=== PATIENT | male | born 1985 | race Caucasian/White ===

== ENCOUNTER 2017-06-21 17:30 | Emergency (ER) | payer MEDICAID ==
[~2017-06-21] VITALS: Ht 188 cm; Wt 92.0 kg
[~2017-06-21 17:30] MED LIST: ONDA4TAB6 PO
[2017-06-21 18:38] VITALS: BP 130/91
== END 2017-06-21 18:40 | disposition home or self-care (01) ==
LOC: ER 17:31
DX: S60.222A Contusion of left hand, initial encounter (principal); F12.10 Cannabis abuse, uncomplicated; Z79.899 Other long term (current) drug therapy; Y08.89XA Assault by other specified means, initial encounter; Y93.89 Activity, other specified; Y92.89 Other specified places as the place of occurrence of the external cause; Y99.8 Other external cause status
CPT/HCPCS: 73130; 99284

== ENCOUNTER 2023-04-01 12:34 | Emergency (ER) | payer MEDICAID ==
[~2023-04-01] VITALS: Ht 188 cm; Wt 104.2 kg
[~2023-04-01 12:34] MED LIST changes: +DIPH25CA83 PO; +HYDR28CR14 TOP
[2023-04-01] MEDS ORDERED: dexamethasone sod phosphate 10mg/ml inj IM STA (12:59)
[2023-04-01] MEDS ORDERED: ketorolac trometh inj. 60 MG/2 ML VIAL IM ONE (13:00)
[2023-04-01] MEDS ORDERED: PROM118S5 PO (14:15)
[2023-04-01] MEDS ORDERED: ALB0.5UD IH (14:15)
[2023-04-01 14:16] VITALS: BP 122/80; PULSE 80; RESP 16; TEMP 98.2; O2SAT 98
== END 2023-04-01 14:18 | disposition home or self-care (01) ==
LOC: ER 12:34
DX: J06.9 Acute upper respiratory infection, unspecified (principal); Z20.822 Contact with and (suspected) exposure to COVID-19; F12.10 Cannabis abuse, uncomplicated; Z79.899 Other long term (current) drug therapy
CPT/HCPCS: 36415; 71045; 87502; 87503; 87811; 96372; 99284; J1100; J1885

== ENCOUNTER 2023-04-13 07:50 | Emergency (ER) | payer MEDICAID ==
[~2023-04-13] VITALS: Ht 188 cm; Wt 100.0 kg
[~2023-04-13 07:50] MED LIST changes: +ALB0.5UD IH
[2023-04-13 07:53] VITALS: BP 146/92; PULSE 97; RESP 16; O2SAT 100
[2023-04-13] MEDS ORDERED: HYDR-3965 PO (09:42)
[2023-04-13 09:55] VITALS: TEMP 98.6
== END 2023-04-13 09:57 | disposition home or self-care (01) ==
LOC: ER 07:50
DX: S60.221A Contusion of right hand, initial encounter (principal); M25.532 Pain in left wrist; M25.531 Pain in right wrist; Z87.81 Personal history of (healed) traumatic fracture; X58.XXXA Exposure to other specified factors, initial encounter; Y93.89 Activity, other specified; Y92.89 Other specified places as the place of occurrence of the external cause; Y99.8 Other external cause status
CPT/HCPCS: 29125; 29130; 73110; 73130; 99284; A6446; A6449

== ENCOUNTER 2023-04-15 15:56 | Emergency (ER) | payer MEDICAID ==
[~2023-04-15] VITALS: Ht 188 cm; Wt 107.7 kg
[~2023-04-15 15:56] MED LIST changes: +HYDR-3965 PO
[2023-04-15 16:00] VITALS: BP 140/95; PULSE 92; RESP 16; TEMP 98; O2SAT 98
== END 2023-04-15 16:29 | disposition home or self-care (01) ==
LOC: ER 15:59
DX: M25.532 Pain in left wrist (principal); F12.90 Cannabis use, unspecified, uncomplicated; Z79.899 Other long term (current) drug therapy
CPT/HCPCS: 99282

== ENCOUNTER 2023-04-22 16:10 | Emergency (ER) | payer MEDICAID ==
[~2023-04-22] VITALS: Ht 188 cm; Wt 107.7 kg
[~2023-04-22 16:10] MED LIST changes: -HYDR-3965 PO
[2023-04-22 16:57] VITALS: BP 130/87; PULSE 102; RESP 18; TEMP 98.4; O2SAT 97
== END 2023-04-22 17:26 | disposition home or self-care (01) ==
LOC: ER 16:11
DX: S69.92XA Unspecified injury of left wrist, hand and finger(s), initial encounter (principal); F12.90 Cannabis use, unspecified, uncomplicated; Z72.89 Other problems related to lifestyle; Z79.899 Other long term (current) drug therapy; X58.XXXA Exposure to other specified factors, initial encounter; Y93.89 Activity, other specified; Y92.89 Other specified places as the place of occurrence of the external cause; Y99.8 Other external cause status
CPT/HCPCS: 99284

== ENCOUNTER 2024-07-30 07:56 | Emergency (ER) | payer SELFPAY ==
[~2024-07-30] VITALS: Ht 188 cm; Wt 97.5 kg
[~2024-07-30 07:56] MED LIST changes: -ALB0.5UD IH
[2024-07-30 08:00] VITALS: BP 142/100; PULSE 96; RESP 18; O2SAT 97
[2024-07-30] MEDS ORDERED: ONDA-243 PO (09:17)
--- NOTE | 2024-07-30 09:17 | Physician Documentation ---
History of Present Illness ~ Chief Complaint: Diarrhea Stated Complaint: N/V Time Seen by MD: 08:51 Primary Medical Doctor: NONE HPI 39year-old male presents to the ED with a complaint of three days of nausea vomiting and diarrhea. He states he went out drinking with his brother and has been sick ever since. He is he is primarily here for a work note. Denies any abdominal pain denies any fever states he was requesting something for nausea Day of Onset: July 30, 2024 Medication Reconciliation Allergies: Coded Allergies: No Known Allergies (Unverified , 04/22/23) Scheduled Diphenhydramine Hcl (Benadryl), 1 CAP PO HS Hydrocortisone (hydrocortisone 1% cream), 1 APPLIC TOP Q12H Scheduled PRN ONDANSETRON ODT 4mg tablet (Ondansetron Odt), 1 TAB PO Q6H PRN PRN for nausea/vomiting Ondansetron Hcl (Zofran), 1 TABLET PO Q6H PRN for nausea/vomiting Past Medical History Past Medical History: No Pertinent History Past Surgical History: no surgical history Alcohol Use: Occasionally Drug Use: marijuana Lives In: Home Occupation: employed Review of Systems All Other Systems at this time: Reviewed and Negative ROS As stated above in the HPI, otherwise all systems are reviewed and negative. Physical Exam Vital Signs: Temperature: 97.3, Source: Oral, Heart Rate: 96, Respiratory Rate: 18, BP: 142/100, Pulse Oximetry: 97, Weight: 97.500 Oxygen Flow Rate: 0 Physical Exam General: Alert, no apparent distress. Respiratory: Lungs clear, no respiratory distress. Cardiovascular: Regular rate and rhythm, no murmurs. Gastrointestinal: Soft, nontender, nondistended. Bowels sounds present. Neurologic: Oriented x4. Psychiatric: Normal mood and affect. Skin: Normal color, warm and dry. No edema, no ecchymosis. Progress Results/Orders Results/Orders Completed Orders - NAYELY BABIN NP Ondansetron Disint. Tablet (Zofran Odt T (07/30/24 09:25) Medications Received in ER Medications (Trade) Dose Ordered Sig/Meagan Route PRN Reason Start Time Stop Time Status Last Admin Dose Admin (Zofran ODT tablet) 4 mg ONCE ONCE PO 07/30/24 09:25 07/30/24 09:28 DC 07/30/24 09:33 4 MG Vital Signs 07/30/24 07/30/24 08:00 09:35 Temp 97.3 97.3 Pulse 96 Resp 18 B/P (MAP) 142/100 Pulse Ox 97 O2 Flow Rate 0 Medical Decision Making Findings Does not present any acute distress in his nontoxic appearing. I am going to treat him with an antiemetic and provide him with a work note as requested for two days. Suspecting either alcoholic gastritis or viral gastroenteritis Diff Dx GI Bleed:Consideration: Include: AE fistula, Angiodysplasia, Bleeding diathesis, Blood loss anemia, Carcinoma, Diverticulosis, Diverticulitis, Esophageal varicies, Esophagitis, Gastritis, Gastroenteritis, Inflammatory BD, Corin-Baird syndrome, Meckel's diverticulum, PUD, Other Diff Dx N/V/D:Considerations: Include: Appendicitis, Bowel obstruction, Dehydration, DKA, Diarrhea - bacterial, Diarrhea - parasitic, Diarrhea - viral, Diverticulitis, Diverticulosis, Drug toxicity, Electrolyte imbalance, Food poisoning, Gastroenteritis, GE reflux, GI bleed, Hepatitis, Hernia, Hypovolemia, Hypotension, Inflammatory BD, Impaction, Malnutrition, Pancreatitis, PUD, Renal failure, Urinary obstruction, UTI, Urolithiasis, Other Departure Disposition: 01 HOME / SELF CARE / HOMELESS Impression: Primary Impression: Gastritis Additional Impression: Viral gastroenteritis Condition: Improved Discharge Instructions: Diarrhea, Adult Departure Forms: Excuse form Work or School Excused From: Work Excuse beginning now through the following date: August 01, 2024 May Return but still avoid physical Activity from now until: August 01, 2024 May Return to full physical activity as of: August 01, 2024 Referrals: NO PRIMARY CARE PROVIDER (PCP) Prescriptions ONDANSETRON ODT 4mg tablet (ONDANSETRON ODT) 4 Mg Tab.rapdis 1 TAB PO Q6H PRN PRN for nausea/vomiting for 4 Days, #16 TAB 0 Refills Prov: NAYELY BABIN NP 07/30/24 Signature Scribe Signature: f Attestation: The note accurately reflects work and decisions made by me.Nayely Babin - HANNAH 07/30/24 09:17 NAYELY BABIN NP July 30, 2024 09:17
[2024-07-30] MEDS: ondansetron 4mg rapidly disintigrating tab PO ONE (09:33)
[2024-07-30 09:35] VITALS: TEMP 97.3
== END 2024-07-30 09:36 | disposition home or self-care (01) ==
LOC: ER 07:57
DX: K29.70 Gastritis, unspecified, without bleeding (principal); A08.4 Viral intestinal infection, unspecified; F12.90 Cannabis use, unspecified, uncomplicated
CPT/HCPCS: 99283

== ENCOUNTER 2024-09-25 20:51 | Emergency (ER) | payer OTHER ==
[~2024-09-25] VITALS: Ht 188 cm; Wt 100.3 kg
[~2024-09-25 20:51] MED LIST changes: +ONDA-243 PO
--- NOTE | 2024-09-25 21:03 | Physician Documentation ---
History of Present Illness ~ Chief Complaint: Abscess Stated Complaint: RASH Time Seen by MD: 20:52 Primary Medical Doctor: NONE HPI Patient presents to the emergency room with chief complaint of abscess to his right axilla. Has been developing over the past week. No prior instances. No fevers. History as above. Tetanus Within 5 Years: Yes Medication Reconciliation Allergies: Coded Allergies: No Known Allergies (Unverified , 04/22/23) Scheduled Diphenhydramine Hcl (Benadryl), 1 CAP PO HS Hydrocortisone (hydrocortisone 1% cream), 1 APPLIC TOP Q12H Scheduled PRN ONDANSETRON ODT 4mg tablet (Ondansetron Odt), 1 TAB PO Q6H PRN PRN for nausea/vomiting Ondansetron Hcl (Zofran), 1 TABLET PO Q6H PRN for nausea/vomiting Past Medical History Past Medical History: No Pertinent History Past Surgical History: no surgical history Alcohol Use: Occasionally Drug Use: marijuana Lives In: Home Occupation: employed Review of Systems ROS All review of systems negative except as per HPI Physical Exam Vital Signs: Temperature: 98.4, Source: Oral, Heart Rate: 113, Respiratory Rate: 16, BP: 118/64, Pulse Oximetry: 97, Weight: 100.300 Oxygen Flow Rate: 0 Physical Exam General: Patient is awake, alert, oriented x4 in no acute distress Head: Normocephalic and atraumatic. Eyes: Conjunctival normal. EOMI. PERRL. ENT: Mucous membranes moist. Neck: Supple, trachea is midline. Chest: Clear to auscultation bilaterally without rales, rhonchi, or wheezes. There is no accessory muscle use or retractions. Cardiac: Tachycardic and regular without murmurs, gallops, or rubs. Skin: Abscess and patient's right axilla measuring 3 cm x 3 cm positive fluctuance. No cellulitis. Procedures Procedures Incision and drainage: Status post informed verbal consent patient was sterilely cleaned and draped. 1% lidocaine with epinephrine to a total of 2 cc was utilized to anesthetize patient. 11. Blade utilized perform incision and drainage with 2 cc of purulent drainage expressed from patient's abscess. He loculation performed. Patient tolerated procedure well without complication. Total time of procedure 7 minutes Progress Results/Orders Results/Orders Vital Signs 09/25/24 20:55 Temp 98.4 Pulse 113 Resp 16 B/P (MAP) 118/64 Pulse Ox 97 O2 Flow Rate 0 Medical Decision Making Findings Patient presented to the emergency room with abscess to his right axilla out differentials include but are not limited to sebaceous cyst, abscess, cellulitis, foreign body. Given history and patient's vitals I do not feel emergent labs or imaging is necessary. Patient is status post incision and dr maynard. Antibiotics initiated. Tetanus reported to be up-to-date. ER precautions discussed. Departure Disposition: HOME / SELF CARE / HOMELESS Impression: Primary Impression: Abscess Condition: Stable Discharge Instructions: Abscess, Care After Referrals: NO PRIMARY CARE PROVIDER (PCP) Prescriptions Sulfamethoxazole/Trimethoprim (Bactrim Ds Tablet) 800 Mg-160 Mg Tablet 1 TAB PO Q12H for 10 Days, #20 TAB Prov: SYD VASQUEZ MD 09/25/24 Education Educated: Patient Educated regarding: diagnosis, treatment, need for follow up Signature Scribe Signature: No scribe Attestation: The note accurately reflects work and decisions made by me.Syd Vasquez MD 09/25/24 21:20 SYD VASQUEZ MD Sep 25, 2024 21:03
[2024-09-25] MEDS ORDERED: SULF1TAB49 PO (21:20)
[2024-09-25] MEDS: bacitracin 15gm ointment TP ONE (21:26)
[2024-09-25] MEDS: ondansetron 4mg rapidly disintigrating tab PO ONE (21:26)
[2024-09-25] MEDS: sulfamethoxazole/trimethoprim DS (800/160mg) tablet PO ONE (21:26)
[2024-09-25 21:32] VITALS: BP 118/62; PULSE 99; RESP 18; TEMP 98.9; O2SAT 99
== END 2024-09-25 21:33 | disposition home or self-care (01) ==
LOC: ER 20:52
DX: L02.411 Cutaneous abscess of right axilla (principal)
CPT/HCPCS: 10060; 99283

== ENCOUNTER 2025-01-23 23:03 | Inpatient (IN) | payer OTHER ==
[~2025-01-23] VITALS: Ht 188 cm; Wt 96.5 kg
[2025-01-23 23:40] LABS: CREATININE 0.90 MG/DL (0.60-1.10); TOTAL CARBON DIOXIDE 27.9 MMOL/L (24-32); eCRCL 127 ML/MIN; eGFR > 90 ML/MIN
[2025-01-24] VITALS (25 sets, daily range): BP systolic 121–167; BP diastolic 67–98; PULSE 82–98; RESP 16–31; TEMP 97.5–98.5; O2SAT 93–99
[2025-01-24 00:38] LABS: MEAN PLATELET VOLUME 9.1 FL (7.4-10.4); RED CELL DISTRIBUTION WIDTH 13.2 % (11.5-14.5)
--- NOTE | 2025-01-24 00:45 | Physician Documentation ---
History of Present Illness ~ Chief Complaint: Abdominal Pain Stated Complaint: ABDOMINAL PAIN Time Seen by MD: 00:42 Primary Medical Doctor: NONE HPI Patient presents to the emergency room with chief complaint of abdominal pain over the last few days getting worse. He also endorses abnormal bowel habits that has well as dysuria. Medication Reconciliation Allergies: Coded Allergies: No Known Allergies (Unverified , 04/22/23) Scheduled Diphenhydramine Hcl (Benadryl), 1 CAP PO HS Hydrocortisone (hydrocortisone 1% cream), 1 APPLIC TOP Q12H Scheduled PRN ONDANSETRON ODT 4mg tablet (Ondansetron Odt), 1 TAB PO Q6H PRN PRN for naus ea/vomiting Ondansetron Hcl (Zofran), 1 TABLET PO Q6H PRN for nausea/vomiting Past Medical History Past Medical History: No Pertinent History Past Surgical History: no surgical history Alcohol Use: Occasionally Drug Use: marijuana Lives In: Home Occupation: employed Review of Systems ROS All review of systems negative except as per HPI Physical Exam Vital Signs: Temperature: 98.2, Source: Temporal, Heart Rate: 89, Respiratory Rate: 24, BP: 109/70, Pulse Oximetry: 98, Weight: 124.000 Oxygen Flow Rate: 0 Physical Exam General: Patient is awake, alert, oriented x4 in no acute distress. Pressured speech Head: Normocephalic and atraumatic. Eyes: Conjunctival normal. EOMI. PERRL. ENT: Mucous membranes moist. Neck: Supple, trachea is midline. Chest: Clear to auscultation bilaterally without rales, rhonchi, or wheezes. There is no accessory muscle use or retractions. Cardiac: RRR without murmurs, gallops, or rubs. Abd: Soft, nondistended, diffuse abdominal tenderness. Positive bowel sounds Progress Results/Orders Results/Orders Orders - SYD VASQUEZ MD Ct Abdomen Pelvis (01/24/25 00:47) Cult Urine + [facility] (01/24/25 01:51) Piperacillin/Tazo 3.375gm/50ml (Zosyn 3. (01/24/25 03:05) Page Hospitalist (01/24/25 03:07) Fill Out Med Reconciliation (01/24/25 03:07) Completed Orders - SYD VASQUEZ MD Cbc/Diff (01/23/25 23:04) BMP (01/23/25 23:04) Lipase (01/23/25 23:04) CMP (01/23/25 23:04) Ct Abdomen Pelvis (01/24/25 00:47) Normal Saline 1000ml (0.9% Sodium Chlori (01/24/25 00:50) Drug Screen, Urine (01/24/25 00:47) Ketorolac Trometh 15mg/Ml Vial (Toradol (01/24/25 00:50) Acetaminophen 1,000mg/100ml Iv (Ofirmev (01/24/25 00:50) Ondansetron Inj. (Zofran 4mg/2ml Vial) (01/24/25 00:55) Potassium Cl Sr Tablet (K-Dur Tablet) (01/24/25 00:52) Iohexol 300mg/Ml 100ml Inj. (Omnipaque-3 (01/24/25 01:49) Ua W/Microscopic, Cult If Ind (01/24/25 01:16) Morphine 4mg/Ml Inj. (Morphine Inj.) (01/24/25 03:10) Medications Received in ER Medications (Trade) Dose Ordered Sig/Meagan Route PRN Reason Start Time Stop Time Status Last Admin Dose Admin Sodium Chloride 1,000 ml @ 1,000 mls/hr ONCE ONCE IV 01/24/25 00:50 01/24/25 01:49 DC 01/24/25 01:30 1,000 MLS/HR (Toradol injection) 15 mg ONCE ONCE IV 01/24/25 00:50 01/24/25 00:51 DC 01/24/25 01:31 15 MG Acetaminophen 100 ml @ 400 mls/hr ONCE ONCE IV 01/24/25 00:50 01/24/25 01:04 DC 01/24/25 01:30 400 MLS/HR (Zofran 4mg/2ml vial) 4 mg ONCE ONCE IV 01/24/25 00:55 01/24/25 00:56 DC 01/24/25 01:31 4 MG (K-DUR tablet) 40 meq ONCE STAT PO 01/24/25 00:52 01/24/25 01:00 DC 01/24/25 01:31 40 MEQ Vital Signs 01/23/25 01/24/25 01/24/25 01/24/25 23:06 00:40 00:46 01:31 Temp 98.2 Pulse 89 94 Resp 24 22 22 20 B/P (MAP) 109/70 133/75 (94) Pulse Ox 98 97 O2 Flow Rate 0 Laboratory Tests Test 01/23/25 23:15 01/24/25 01:16 White Blood Count 13.0 H Red Blood Count 4.63 L Hemoglobin 15.3 Hematocrit 43.4 Mean Corpuscular Volume 93.7 Mean Corpuscular Hemoglobin 33.1 H Mean Corpuscular Hemoglobin Concent 35.4 Red Cell Distribution Width 13.2 Platelet Count 205 Mean Platelet Volume 9.1 Neutrophils (%) (Auto) 76.8 H Lymphocytes (%) (Auto) 14.2 L Monocytes (%) (Auto) 7.9 Eosinophils (%) (Auto) 0.6 Basophils (%) (Auto) 0.5 Neutrophils # (Auto) 10.0 H Lymphocytes # (Auto) 1.9 Monocytes # (Auto) 1.0 H Eosinophils # (Auto) 0.1 Basophils # (Auto) 0.1 CBC Comment Sodium Level 136 Potassium Level 2.9 *L Chloride Level 97 L Carbon Dioxide Level 27.9 Anion Gap 11 Blood Urea Nitrogen 11 Creatinine 0.90 Estimated GFR/1.73 m2 > 90 BUN/Creatinine Ratio 12.2 Glucose Level 121 H Calcium Level 9.1 Total Bilirubin 1.0 Aspartate Amino Transf (AST/SGOT) 20 Alanine Aminotransferase (ALT/SGPT) 20 Alkaline Phosphatase 91 Total Protein 8.5 H Albumin 3.3 L Globulin 5.2 H Albumin/Globulin Ratio 0.6 L Lipase 17 Chemistry Comments Urine Specimen Description Cln catch midstream Urine Color Yellow Urine Clarity Slightly cloudy Urine pH 6.5 Urine Specific [place] 1.020 Urine Protein 100 H Urine Glucose (UA) Negative Urine Ketones Trace H Urine Occult Blood Negative Urine Nitrite Negative Urine Bilirubin Small Urine Urobilinogen 1.0 Urine Leukocyte Esterase Negative Urine RBC 3-10 Urine WBC 5-10 H Urine Squamous Epithelial Cells Few Urine Transitional Epithelial Cells Few Urine Amorphous Urates 1+ Urine Bacteria None seen Urine Mucus Few Urine Culture Indicated Indicated Volume Urine Centrifuged 10 ml Urine Comment Urine Opiates Screen Negative Urine Methadone Screen Negative Urine Fentanyl Screen Negative Urine Barbiturates Screen Negative Urine Phencyclidine Screen Negative Urine Amphetamines Screen Negative Urine Benzodiazepines Screen Negative Urine Cocaine Screen Negative Urine Cannabinoids Screen Positive Drug Screen Comment Microbiology Date/Time Source Procedure Growth Status 01/24/25 01:51 Urine Clean Catch Midstream Urine Culture - Preliminary Culture received. Resulted Medical Decision Making Additional information obtaine: N/A Findings Patient presented to the emergency room with chief complaint of abdominal pain. Differentials include but are not limited to appendicitis diverticulitis small- bowel obstruction pancreatitis cholecystitis gastritis therefore emergent labs and imaging indicated. Labs show white count along with intra-abdominal air. Surgeon and easily consulted in his aware of patient. IV antibiotics initiated. Blood pressure is reassuring. Diff Dx GI Bleed:Consideration: Include: AE fistula, Angiodysplasia, Bleeding diathesis, Blood loss anemia, Carcinoma, Diverticulosis, Diverticulitis, Esophageal varicies, Esophagitis, Gastritis, Gastroenteritis, Inflammatory BD, Corin-Baird syndrome, Meckel's diverticulum, PUD, Other Diff Dx Pain:Considerations: Include: AAA, Angina/CA, Aortic dissection, Appen dicitis, Bowel obstruction, Cholangitis, Cholecystitis, Cholelithasis, Constipation, Diverticular disease, Esophageal rupture, Esophagitis, Gastritis, Gastroenteritis, GI hemorrhage, Hepatitis, Hernia, Inflammatory BD, Ischemic bowel, Mass, Pancreatitis, Porphyria, PUD, Testicular torsion, Trauma, intraabdominal, Urinary obstruction, Urinary tract infection, Urolithiasis, Other Diff Dx N/V/D:Considerations: Include: Appendicitis, Bowel obstruction, Dehydration, DKA, Diarrhea - bacterial, Diarrhea - parasitic, Diarrhea - viral, Diverticulitis, Diverticulosis, Drug toxicity, Electrolyte imbalance, Food poisoning, Gastroenteritis, GE reflux, GI bleed, Hepatitis, Hernia, Hypovolemia, Hypotension, Inflammatory BD, Impaction, Malnutrition, Pancreatitis, PUD, Renal failure, Urinary obstruction, UTI, Urolithiasis, Other Diff Dx Rectal:Considerations: Include: Fissure, Fistula, Foreign body, Impaction, Perirectal abscess, Prostatitis, Rectal prolapse, Subcutaneous abscess, Thrombosed hemorrhoid, Ulcer, UTI, Other Departure Admitted to Inpatient Unit: yes, to hospitalist Impression: Primary Impression: Perforated bowel Referrals: NO PRIMARY CARE PROVIDER (PCP) Critical Care Note Total Time (mins): 46 Critical Care Note The very real possibility of a deterioration of this patient's condition required the highest level of my preparedness for sudden, emergent intervention. I provided critical care services, which included medication orders, frequent reevaluations of the patient's condition and response to treatment, ordering and reviewing test results, and discussing the case with various consultants. Excludes time spent performing separately billable procedures. The critical care time associated with the care of the patient was 46 minutes not counting procedures Signature Scribe Signature: No scribe Attestation: The note accurately reflects work and decisions made by me.Syd Vasquez MD 01/24/25 03:23 SYD VASQUEZ MD Jan 24, 2025 00:45
[2025-01-24] MEDS: acetaminophen 1,000mg/100ml IV 100 ML IV ONE (01:30)
[2025-01-24] MEDS: normal saline 1000ml 1,000 ML IV ONE (01:30)
[2025-01-24] MEDS: ketorolac trometh 15mg/ml vial 15 MG/ML ML IV ONE (01:31)
[2025-01-24] MEDS: potassium Cl 20 mEq SR tablet PO STA (01:31)
[2025-01-24] MEDS: ondansetron/PF 4mg/2ml inj IV ONE (01:31)
[2025-01-24 01:44] LABS: LEUKOCYTE ESTERASE ,URINE NEGATIVE (Neg); OCCULT BLOOD,URINE NEGATIVE (Neg)
[2025-01-24 01:49] LABS: UA COLLECTION TYPE CLN CATCH MIDSTREAM
[2025-01-24] MEDS ORDERED: iohexol 300mg/ml 100ml inj. ONE (01:49)
[2025-01-24 01:50] LABS: NITRITES, URINE NEGATIVE (Neg)
[2025-01-24 01:51] LABS: AMORPHOUS URATES 1+; MUCUS STRANDS FEW /LPF (Neg); SQUAMOUS EPITHELIAL CELL,UR FEW /LPF (FEW); URINE AMPHETAMINE SCREEN NEGATIVE (Neg); URINE BARBITUATE SCREEN NEGATIVE (Neg); URINE BENZODIAZEPINES SCREEN NEGATIVE (Neg); URINE CANNABINOID SCREEN POSITIVE (Neg); URINE COCAINE SCREEN NEGATIVE (Neg); URINE METHADONE SCREEN NEGATIVE (Neg); URINE OPIATE SCREEN NEGATIVE (Neg); URINE PHENCYCLIDINE SCREEN NEGATIVE (Neg)
--- NOTE | 2025-01-24 03:01 | RADIOLOGY REPORT ---
Exam: CT CT ABDOMEN PELVIS W/ IV CONTRAST History: abd pain Comparison Study: None TECHNIQUE: CT imaging of the abdomen and pelvis was obtained following the administration of intravenous contrast. Coronal and sagittal reformatted images were reviewed. All CT scans at this medical facility are performed using dose modulation techniques as appropriate to a performed exam including the following: Automated exposure control was utilized; adjustment of the MA and/or KV according to patient size; and use of iterative reconstruction technique. Radiation Dose Information: CT Dose: CTDI volume is 30.7 mGy. Dose-length product is 1756 mGy*cm FINDINGS: Imaged portions of the lung bases demonstrate subsegmental atelectasis. Liver, gallbladder, spleen, pancreas and adrenal glands appear unremarkable. The kidneys appear symmetric without hydronephrosis. The stomach and proximal small bowel is normal in caliber. There is an abnormal loop of terminal ileum measuring up to 3.1 cm with wall thickening and inspissated contents. Few additional proximal loops of jejunum are noted measuring up to 3.1 cm. Within the right lower quadrant, there is significant p ericolonic and perienteric fat stranding and small amount of fluid in the right lower quadrant. There is colonic diverticulosis and loculated free air adjacent to loop of sigmoid colon as well as terminal ileum. There are a few additional foci and areas of free intraperitoneal air. The urinary bladder wall is mildly thickened but partially collapsed. No significant adenopathy. Degenerative changes at L5-S1 without suspicious osseous lesion. IMPRESSION: 1. Abnormal appearance of distal ileal loop with wall thickening, marked perienteric fat stranding, adjacent free fluid, inseparable from sigmoid colon which exhibits mild wall thickening and diverticulosis. There are findings of adjacent micro perforation as well as moderate free intraperitoneal air. Findings may be on the basis of sigmoid colonic diverticulitis with perforation versus ileal enteritis with perforation. Critical Result: Pneumoperitoneum (free air) Findings discussed with GLORIA PYLE at 01/24/2025 05:58 AM EST, and acknowledged receipt and understanding of the findings. ..
[2025-01-24] MEDS ORDERED: HYDROcodone/acetaminophen 10/325mg tab PO PRN (03:20)
[2025-01-24] MEDS ORDERED: mag hydrox/Alum hydrox/simeth 30ml oral suspension PO PRN (03:20)
[2025-01-24] MEDS ORDERED: potassium Cl 20 mEq SR tablet PO PRN (03:20)
[2025-01-24] MEDS ORDERED: HYDROcodone/acetaminophen 5mg/325mg tablet PO PRN (03:20)
[2025-01-24] MEDS ORDERED: magnesium sulf-water 2g/50mL 50 ML IV PRN (03:20)
[2025-01-24] MEDS ORDERED: HYDROmorphone inj. 0.5 MG/0.5 ML DISP.SYRIN IV PRN ×2 (03:20→10:30)
[2025-01-24] MEDS ORDERED: magnesium hydroxide 30ml (MOM) UD suspension PO PRN (03:20)
[2025-01-24] MEDS ORDERED: magnesium Cl slow-release 64mg tablet PO PRN (03:20)
[2025-01-24] MEDS ORDERED: magnesium sulf-water 4G/100mL 100 ML IV PRN (03:20)
[2025-01-24] MEDS ORDERED: HYDROmorphone/PF 0.2 MG/ML SYRINGE IV PRN ×3 (03:20→21:40)
[2025-01-24] MEDS: morphine 4 MG/ML inj SYRINge IV ONE (03:39)
--- NOTE | 2025-01-24 03:42 | HISTORY AND PHYSICAL-Residence ---
History & Physical Providers to CC Resident Creating Document: ELAYNE HARLEY, RES ~ History of Present Illness Primary Medical Doctor: none Reason for Admit\\Complaint: Perforated bowel History of Present Illness This is a 39-year-old male with no significant past medical history presents to the ER due to intractable abdominal pain. Patient endorses that he had a stomach infection, nausea on last week, he also had nonbloody watery diarrhea on Wednesday and started taking Imodium. Diarrhea and abdominal pain has initially improved, however this morning patient had an episode of acute intractable abdominal pain 10/10 severity, diffuse pain worsened the lower hypogastric region associated with multiple episodes of vomiting and dark urine. He also endorses feeling bloated and having abdominal distention. Patient states" he did not want to in the couch" and hence came to the ED. ER course: Patient was severely tender on palpation of abdomen. Lipase levels were within normal limits, white count is slightly elevated, CT abdomen pelvis showed perforated bowel secondary to diverticulitis versus enteritis. Patient received one dose of 15 mg IV Toradol, Zofran 4 mg IV, potassium tablet, Zosyn, morphine [address] dose[address] Robledo was consulted in the view of perforated viscus and patient is currently NPO for possible surgery. Allergies: Coded Allergies: No Known Allergies (Unverified , 04/22/23) Home Medications Home Medications Active Ondansetron Odt (Ondansetron HCl) 4 Mg Tab.rapdis 1 Tab PO Q6H PRN PRN 4 Days Benadryl (Diphenhydramine Hcl) 25 Mg Capsule 1 Cap PO HS 30 Days hydrocortisone 1% cream (Hydrocortisone) 1 % Cream..g. 1 Applic TOP Q12H 10 Days apply to affected area(s) Zofran (Ondansetron Hcl) 4 Mg Tablet 1 Tablet PO Q6H PRN Past Medical History Past Medical History None Past Surgical History Surgical History Comment None Past Social History Social History Comment Smokes about one pack per day for the last 20 years, drinks about 3-4 drinks on the weekends, smokes marijuana but denies any drug use. Lives at home and ambulates independently Smoking: Cigarettes Alcohol Use: Occasionally Drug Use: Marijuana Lives In: Home Occupation: employed ROS ROS Constitutional: No fever, chills, dizziness, weakness, weight gain or loss Eyes: No pain, erythema, discharge, blurring of vision ENT: No sore throat, epistaxis, tinnitus Cardiovascular: No palpitations, syncope, lower extremity edema, paroxysmal nocturnal dyspnea Respiratory: No hemoptysis Gastrointestinal: Loss of appetite. nausea, vomiting, diarrhea, , abdominal pain, bloating, no melena or fresh blood Genitourinary: Dark urine, No frequency, urgency, nocturia, hematuria or dysuria Musculoskeletal: No arthralgias or myalgias Integumentary: No change in skin, hair, nails. No swelling, bruising, abrasions Neurologic: No headache, neck pain, numbness or tingling of the extremities, weakness Psychiatric: No delusions, depression, loss of interest in normal activity or change in sleep pattern, hallucinations, suicidal ideations Endocrine: No fatigue, weakness, polydipsia, polyuria, change in appetite, heat or cold intolerance, sweating, dry skin Hematological: No bleeding, petechiae, bruising Allergies: No asthma or urticaria Exam Vitals: Vital Signs Date Time Temp Pulse Resp B/P (MAP) Pulse Ox O2 Delivery O2 Flow Rate FiO2 01/24/25 01:31 20 01/24/25 00:46 94 133/75 (94) 97 01/23/25 23:06 98.2 0 General: General: well developed, well nourished. Awake , alert, and oriented x4, resting comfortably in the bed, in no acute distress . HEENT: Atraumatic, normocephalic, EOMI, anicteric sclera B; pink conjunctiva; PERRLA, normal oropharynx, moist oral and nasal mucosa. Tympanic membrane , nose , throat clear. Neck: Trachea midline. Supple, full range of motion, no JVD, bruit , hepatojugular reflex , lymphadenopathy or masses, or other lesions Cardiac: Regular rhythm, regular rate no murmurs, rubs, or gallops. Normal S1 and S2, no S3 noticed. PMI is normal. Respiratory: Equal breath sounds bilaterally, no tachypnea; lungs clear to auscultation bilaterally, no wheezing ,rub or rales, or crackles. Chest wall is symmetric and without deformity. No signs of trauma. Chest wall is nontender. No signs of respiratory distress. Resonance is normal upon percussion bilaterally. Gastrointestinal: Abdomen symmetric, distended, rigid, severely tender, diffuse bowel sounds x4 quadrant, normoactive, no hepatosplenomegaly no masses , no bruit, no flank pain bilaterally. No pulsatile masses. Equal femoral pulses. No Thomas's sign or McBurney point tenderness. Back; no CVA tenderness bilaterally, no deformities. Neck and back are without deformity as well. No tenderness noted on palpation of the spinous processes. Spinous processes are midline. Cervical, thoracic, and lumbar paraspinal muscles are not tender and are without spasm. : normal external genitalia, without lesions, swelling, masses or tenderness. Musculoskeletal: Extremities, normal range of motion, non-tender, muscle strength 5/5 x 4. Negative Homans signs bilaterally on lower extremity. Distal pulses full symmetrical, no clubbing, cyanosis , edema. Neurological: Speech is clear, alert, and oriented x 4. No motor or sensory deficit, deep tendon reflexes normal, cerebellar intact. Cranial nerves II-XII intact. Psych: Alert and or appropriate, normal affect. Vascular: Good distal pulses, which are equal x4; capillary refill less than 2 seconds. Skin: Warm, dry, no pallor, no rash or petechiae. Diagnostic Data Last Recorded Lab Results: 01/23/25 2315 01/24/25 0648 Advance Care Planning Advanced Care plannin - 30 Minutes (I spent a total of 17 minutes on reviewing various resuscitative measures/ ACP with the patient at the time of admission. The patient has decided on a full code status) Additional Plan Intractable abdominal pain pneumoperitoneum likely secondary to Imodium use on ileal enteritis Leukocytosis CT abdomen shows Abnormal appearance of distal ileal loop with wall thickening, marked perienteric fat stranding, adjacent free fluid, inseparable from sigmoid colon which exhibits mild wall thickening and diverticulosis. There are findings of adjacent micro perforation as well as moderate free intraperitoneal air. Findings may be on the basis of sigmoid colonic diverticulitis with perforation versus ileal enteritis with perforation. Patient denies any bloody stools which is more suggestive of ileal enteritis with perforation rather than diverticulitis. Surgeon Dr. Robledo is aware about the patient's. NPO for possible surgery. Started on IV Zosyn Q 8 hours for pre-surgical prophylaxis. Started on IV fluids NS at 100 mL/hour. Pain management with morphine Dilaudid. Started on IV Protonix 40 mg, type and screen, PT INR ordered. Lactic acid and procalcitonin levels are pending. Consult GI in the a.m. Avoid Imodium. Hypokalemia Potassium 2.9, replace per protocol Asymptomatic bacteriuria UA shows 5-10 urine WBC and 1+ protein, trace ketonuria. Continue Zosyn and IV fluids. However patient denies any dysuria. Code Status: Full code DVT Prophylaxis: Heparin Analgesia/Sedation: Morphine, Dilaudid Lines/Tubes: PIV Gi Prophylaxis: IV Protonix Nutrition: NPO PT: Yes Prognosis: Guarded Disposition: Admit to PCU Elayne Magallon MD Internal Medicine Resident PGY-2 Addendum I personally reviewed the chart, labs and imaging and reviewed the patient with the team. I agree with the assessment and plan as documented by the resident. Patient was seen through remote audio-visual assessment through HIPAA compliance setup. Date of Service: Jan 24, 2025 Billing Provider: JAMMIE CHAVEZ MD,ELAYNE MAGALLON, RES Jan 24, 2025 03:42 JAMMIE CHAVEZ MD Jan 24, 2025 08:41
[2025-01-24] MEDS: piperacillin/tazo 3.375gm/50ml 50 ML IV ONE (03:43)
[2025-01-24 03:58] LABS: PRO BRAIN NATRIURETIC PEPTIDE < 30 PG/ML (0-125)
[2025-01-24 04:17] LABS: APTT 28 SECONDS (22-32); INR 1.0 INR
--- NOTE | 2025-01-24 04:19 | RADIOLOGY REPORT ---
CHEST RADIOGRAPH Indication: SOB Technique: Single frontal view of the chest was obtained Comparison: DI CHEST,SINGLE VIEW on DOS: 04/01/23 FINDINGS: Lines and Tubes: None Lungs: No focal consolidation. Pleura: No effusion. No pneumothorax. Cardiomediastinal contours: Unremarkable Bones: No acute osseous abnormality. IMPRESSION: 1. No acute cardiopulmonary disease.
[2025-01-24] MEDS: normal saline 1000ml 1,000 ML IV SCH ×2 (04:35→22:15)
[2025-01-24 04:53] LABS: LEUKOCYTE ESTERASE ,URINE NEGATIVE (Neg); NITRITES, URINE NEGATIVE (Neg); OCCULT BLOOD,URINE NEGATIVE (Neg)
[2025-01-24 04:54] LABS: UA COLLECTION TYPE URINAL
[2025-01-24 04:57] LABS: MUCUS STRANDS FEW /LPF (Neg); SQUAMOUS EPITHELIAL CELL,UR FEW /LPF (FEW)
[2025-01-24] MEDS: heparin, porcine 5000 units/ml vial SQ SCH (08:00)
[2025-01-24] MEDS: docusate sod 100mg capsule PO SCH (08:00)
[2025-01-24] MEDS: K and/or MAG REPLACEMENT MC SCH (08:00)
[2025-01-24] MEDS: HYDROmorphone inj. 0.5 MG/0.5 ML DISP.SYRIN IV ONE (10:21)
[2025-01-24] MEDS: ringers solution, lacted 1,000 ML IV SCH ×2 (10:22→21:40)
[2025-01-24] MEDS: potassium Cl 40MEQ/1/2NS 520ml 520 ML IV PRN (10:22)
[2025-01-24] MEDS ORDERED: NO HOME MEDS (11:16)
[2025-01-24] MEDS: piperacillin/tazo 3.375gm/50ml 50 ML IV SCH (14:05)
--- NOTE | 2025-01-24 17:29 | CONSULTATION REPORT ---
History of Present Illness Providers to CC CC: NOEMY QURESHI MD ~ Reason for Admit\Admit Dx: Complicated diverticulitis Refering MD: none History of Present Illness Patient with lower abdominal pain over the last couple of days it got significantly worse overnight when he felt something pop. presented to the emergency room where he was found to have acute sigmoid diverticulitis. He had some locules of air outside the colon in the upper abdomen, however, his pain was limited to the left lower quadrant without peritonitis. He was admitted and started on broad-spectrum antibiotics with bowel rest. Throughout the day his pain, not only did not improve, but gradually worsened. This afternoon his pain became unbearable. I was called to re-evaluate the patient. He states that his pain has significantly worsened and is no longer in the lower abdomen but now involving the entire abdomen. No previous colonoscopy No significant medical history Allergies: Coded Allergies: No Known Allergies (Unverified , 04/22/23) Home Medications Home Medications Active Reported No Home Medications (Home Med List) Each Past Medical History Medical History Comment None reported Past Surgical History Surgical History Comment None reported Past Family History Family History Comment Not applicable Family History: Patient reports no known family medical history. 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 [employer] Physical Exam Last Vital Signs Recorded: RN Vital Signs have been reviewed: Yes, Temperature: 98.2, Source: Temporal, Heart Rate: 87, Respiratory Rate: 18, BP: 126/73, Pulse Oximetry: 96, Weight: 96.500 General Appearance: alert, moderate distress EENT: PERRL/EOMI Neck: normal inspection, supple Respiratory: lungs clear Cardiovascular: normal peripheral pulses Gastrointestinal Guarded abdomen Diffuse rebound tenderness Rectal: deferred Extremities: normal range of motion, no edema Neurologic: oriented x4 Psychiatric: normal mood/affect Skin: normal color Results Diagram Lab Result Diagram: 01/23/25 2315 01/24/25 0648 Assessment/Plan Problems/Diagnosis: (1) Diverticulitis of large intestine with complication (2) Perforated bowel Additional Plan The risks, benefits, and alternatives to a robotic assisted, laparoscopic possible open sigmoid colectomy, possible ostomy were discussed with the patient. Risks include, but are not limited to, bleeding, infection, injury to intra-abdominal structures, leakage from the intestine and the need for additional surgery. Patient verbalized understanding and wishes to proceed with surgery. We will do so today as soon as possible NOEMY QURESHI MD Jan 24, 2025 17:29
[2025-01-24] MEDS ORDERED: fentaNYL /PF 50mcg/ml 5ml ampule ONE ×2 (17:42→18:28)
[2025-01-24] MEDS ORDERED: midazolam 1 mg/ML 2ml injection ONE (17:42)
[2025-01-24] MEDS ORDERED: propofol inj 20 ML IV ONE (17:44)
[2025-01-24] MEDS ORDERED: LIDOcaine 2% (20mg/ml) 5ml vial ONE (17:44)
[2025-01-24] MEDS ORDERED: rocuronium 10mg/ml inj IV ONE ×3 (18:03→21:19)
[2025-01-24] MEDS ORDERED: dexamethasone sod phosphate 4mg/ml inj. ONE (18:04)
[2025-01-24] MEDS ORDERED: INDOCYANINE GREEN 25 MG/10 ML VIAL IV ONE (19:25)
[2025-01-24] MEDS ORDERED: morphine 10mg/ml inj. ONE (20:58)
[2025-01-24] MEDS ORDERED: acetaminophen 1,000mg/100ml IV 100 ML IV ONE (21:26)
[2025-01-24] MEDS ORDERED: labetalol 20mg/4ml (5mg/ml) syringe IV PRN (21:40)
[2025-01-24] MEDS ORDERED: enalaprilat 1.25mg/ml 2ml vial IV PRN (21:40)
[2025-01-24] MEDS ORDERED: fentaNYL/PF 50MCG/1 ML 2ML syringe IV PRN ×2 (21:40)
[2025-01-24] MEDS ORDERED: ondansetron/PF 4mg/2ml inj IV PRN (21:40)
[2025-01-24] MEDS: morphine 4 MG/ML inj SYRINge IV PRN (21:53)
[2025-01-24] MEDS: HYDROmorphone inj. 0.5 MG/0.5 ML DISP.SYRIN IM ONE (22:14)
--- NOTE | 2025-01-24 22:30 | OPERATIVE REPORT ---
Operative Report Providers to CC CC: TIUTSREAL ~ Date of Procedure: Jan 24, 2025 Pre-Operative Diagnosis: Complicated sigmoid diverticulitis Post-Operative Diagnosis SAME as PRE-Op Procedure Performed Robotic assisted, laparoscopic sigmoid colectomy Robotic assisted, laparoscopic creation of colostomy Surgeon: Daniel Qureshi MD FACS Digital Account Director None Anesthesiologist: Ady Thurman Type of Anesthesia: General Findings: Complicated sigmoid diverticulitis Purulent and feculent peritonitis Wound class IV Complications None Prosthetics\Implants used: 19 [place] Dany drain placed in the pelvis Estimated Blood Loss: 100 cc Specimen Removed: Perforated portion of sigmoid colon Description of Procedure: Patient was brought to the operating room and identified by the nursing staff a nd the attending physician. Patient was placed supine and general anesthesia was induced. Preoperative antibiotics were given. Arciniega catheter was placed. Abdomen was prepped and draped in the standard sterile fashion. Veress needle technique was used at lazar's point in the abdomen was insufflated without incident. Optical trocar was used to gain access to the abdomen. Abdomen was surveyed. There was significant inflammatory reaction with diffuse peritonitis within the lower abdomen and pelvis. Patient was placed in Trendelenburg position. Additional 8.5 mm robotic trocars were placed and the 12 mm stapling port was placed in the right lower quadrant. [employer] robotic arm was docked to the patient and instruments were guided into the abdomen under laparoscopic visualization. There was significant distention of small bowel with inflammatory adhesions in the pelvis leading to a small-bowel obstruction. These were mobilized out of the pelvis, unroofing a large abscess. There was feculent material. The surrounding peritoneum was significantly inflamed as was adjacent bowel. Abscess and feculent leaked material appeared to be coming from the mid sigmoid colon. Distal sigmoid colon and proximal sigmoid colon did not appear involved. The proximal and distal points of transection were chosen through what appeared to be fairly healthy-appearing colon. Mesenteric rents were created and these points were divided using robotic linear cutting stapler. Mesentery to the involved segment was divided using vessel sealer device. Perforated segment of sigmoid colon was set aside. The mesentery to the proximal sigmoid colon and distal descending colon was mobilized and the colon was mobilized away from the pelvic inlet and white line of Toldt was taken down to allow adequate length to create a colostomy. No attempt at primary anastomosis was made due to significant inflammatory changes, edema of the colon, and small bowel so distended due to obstruction that pulling up a diverting loop ileostomy was not ideal. Once adequate length was obtained to create the colostomy, the abdomen and pelvis was irrigated with 5 L of balanced electrolyte solution and suctioned. Instruments were removed and the de Ely robotic arm was undocked from the patient. The specimen was secured. Disc of skin was removed from the ostomy site and muscle-splitting technique was used. Dennys device was passed and the specimen was delivered through the Dennys. Colon for colostomy was delivered. Drain was passed through one of the 8 mm port sites into the pelvis. 12 mm port site was closed percutaneously with 0 Vicryl suture under laparoscopic visualization. Abdomen was deflated and remaining ports removed. Colostomy was matured with interrupted Vicryl sutures. It appeared viable. Skin was closed at all sites with skin kevin. Patient was awakened and taken to the postanesthesia care unit in stable condition. Counts repoted as correct: Yes DANIEL QURESHI MD Jan 24, 2025 22:30
[2025-01-24] MEDS: HYDROmorph/NS 0.2 mg/ml PCA 100 ML IV SCH (22:37)
[2025-01-25] VITALS (12 sets, daily range): BP systolic 109–154; BP diastolic 57–94; PULSE 77–99; RESP 16–24; TEMP 97.4–98.7; O2SAT 96–98
[2025-01-25] MEDS: ketorolac trometh 15mg/ml vial 15 MG/ML ML IV ONE (03:10)
[2025-01-25] MEDS: ondansetron/PF 4mg/2ml inj IV PRN (03:12)
[2025-01-25] MEDS: ketorolac trometh 15mg/ml vial 15 MG/ML ML IM ONE (03:13)
[2025-01-25 06:17] LABS: MEAN PLATELET VOLUME 8.1 FL (7.4-10.4); RED CELL DISTRIBUTION WIDTH 12.7 % (11.5-14.5)
[2025-01-25 06:20] LABS: CHOL/HDL RATIO 5.5 (0.00-4.99); CREATININE 0.71 MG/DL (0.60-1.10); LDL CHOLESTEROL 105 MG/DL (50-100); TOTAL CARBON DIOXIDE 27.7 MMOL/L (24-32); eCRCL 161 ML/MIN; eGFR > 90 ML/MIN
--- NOTE | 2025-01-25 12:29 | PROGRESS NOTE- Residence ---
Progress Note - Resident Providers to CC Resident Creating Document: HOWARD DARLING RES ~ Antibiotic Timeout Antibiotic Ordered?: Yes Subjective Patient was seen and examined at the bedside today. Patient reports that he has not had a bowel movement yet. Has mild pain in his abdomen. No acute overnight events recorded. Objective Vital Signs Date Time Temp Pulse Resp B/P (MAP) Pulse Ox O2 Delivery O2 Flow Rate FiO2 01/25/25 11:00 97.9 84 18 136/81 (99) 98 01/25/25 08:00 Room Air 01/24/25 23:00 4.0 Result Diagram: 01/26/2543301/26/25433 General: well developed, well nourished. Awake , alert, and oriented x4, resting comfortably in the bed, in no acute distress . HEENT: Atraumatic, normocephalic, EOMI, anicteric sclera ; pink conjunctiva; PERRLA, normal oropharynx, moist oral and nasal mucosa. Tympanic membrane , nose , throat clear. Neck: Trachea midline. Supple, full range of motion, no JVD, bruit , hepatojugular reflex , lymphadenopathy or masses, or other lesions Cardiac: Regular rhythm, regular rate no murmurs, rubs, or gallops. Normal S1 and S2, no S3 noticed. Respiratory: Equal breath sounds bilaterally, no tachypnea; lungs clear to auscultation bilaterally, no wheezing ,rub or rales, or crackles. Chest wall is symmetric and without deformity. No signs of trauma. Chest wall is nontender. No signs of respiratory distress. Resonance is normal upon percussion bilaterally. Gastrointestinal: Abdomen symmetric, distended, tender, diffuse bowel sounds x4 quadrant, normoactive, colostomy bag present no hepatosplenomegaly no masses , no bruit, no flank pain bilaterally. No pulsatile masses. Equal femoral pulses. Back; no CVA tenderness bilaterally, no deformities. Neck and back are without deformity as well. No tenderness noted on palpation of the spinous processes. Spinous processes are midline. Cervical, thoracic, and lumbar paraspinal muscles are not tender and are without spasm. : normal external genitalia, without lesions, swelling, masses or tenderness. Musculoskeletal: Extremities, normal range of motion, non-tender, muscle strength 5/5 x 4. Distal pulses full symmetrical, no clubbing, cyanosis , edema. Neurological: Speech is clear, alert, and oriented x 4. No motor or sensory deficit, deep tendon reflexes normal, cerebellar intact. Cranial nerves II-XII intact. Psych: Alert and or appropriate, normal affect. Vascular: Good distal pulses, which are equal x4; capillary refill less than 2 seconds. Skin: Warm, dry, no pallor, no rash or petechiae. Coagulation Studies Laboratory Tests Test 01/24/25 03:43 Prothrombin Time 10.6 SECONDS (9.0-12.0) INR International Normalized Ratio 1.0 INR Activated Partial Thromboplast Time 28 SECONDS (22-32) Coagulation Comments Plan Plan Acute abdominal pain Complicated sigmoid diverticulitis, peritonitis, perforation S/P laparoscopic sigmoid colectomy With creation of colostomy done on 01/24/25 Patient underwent laparoscopic sigmoid colectomy by Dr. Robledo yesterday. Patient's vitals are currently stable. Patient on room air, saturating well. WBC- 13.9 Patient receiving fluids dextrose/nacl 100 cc Patient currently on Zosyn day 2, patient on ice chips Patient on Toradol q.6h for pain management. We will continue to monitor the patient. Hypokalemia resolved Potassium 3.8 Patient on potassium replacement protocol. We will continue to monitor potassium levels Asymptomatic bacteriuria UA shows 5-10 urine WBC and 1+ protein, trace ketonuria. Continue Zosyn and IV fluids. However patient denies any dysuria. Code Status: Full code DVT Prophylaxis: Heparin Analgesia/Sedation: Toradol Morphine, Dilaudid Lines/Tubes: PIV Nutrition: Ice chips PT: Yes Prognosis: Guarded Disposition- patient underwent laparoscopic sigmoid colectomy with creation of colostomy yesterday by Dr. Robledo. Addendum pain management with dilaudid garment sewer hand pump Date of Service: Jan 25, 2025 Billing Provider: NATHANIEL JERRY MD Common Visit Codes: [id number] INP/OBS CARE(HIGH) HOWARD DARLING, RES Jan 25, 2025 12:29 NATHANIEL JERRY MD Jan 26, 2025 06:30
[2025-01-25] MEDS: ketorolac trometh 30MG/ML vial 30 MG/ML VIAL IV SCH (13:24)
[2025-01-25] MEDS: HYDROmorph/NS 0.2 mg/ml PCA 100 ML IV SCH (14:50)
[2025-01-25] MEDS: nicotine 21mg patch - 24 hr TD ONE (14:58)
--- NOTE | 2025-01-25 17:45 | PROGRESS NOTE ---
Progress Note Dictate Providers to CC ~ Progress Note: Subsequent surgical care on a 39-year-old gentleman who is postoperative day 1, status post robotic assisted, laparoscopic sigmoid colectomy with creation of colostomy for complicated diverticulitis Gas in the ostomy appliance Hungry Stoma congested but viable with some liquid and gas in the appliance Trial of clears Continue antibiotics Continue drain Antibiotic Ordered?: Yes Objective Vitals Vital Signs Date Time Temp Pulse Resp B/P (MAP) Pulse Ox O2 Delivery O2 Flow Rate FiO2 01/25/25 13:30 98.2 94 18 116/76 (89) 97 Room Air 01/24/25 23:00 4.0 Lab Results: 01/25/25 0527 01/25/25 0527 Coagulation Studies Laboratory Tests Test 01/24/25 03:43 Prothrombin Time 10.6 SECONDS (9.0-12.0) INR International Normalized Ratio 1.0 INR Activated Partial Thromboplast Time 28 SECONDS (22-32) Coagulation Comments Problem\Assessment\Plan Problems/Diagnosis: (1) Diverticulitis of large intestine with complication (2) Perforated bowel NOEMY QURESHI MD Jan 25, 2025 17:45
[2025-01-26] MEDS: ketorolac trometh 30MG/ML vial 30 MG/ML VIAL IV PRN (03:44)
[2025-01-26 05:12] LABS: MEAN PLATELET VOLUME 7.9 FL (7.4-10.4); RED CELL DISTRIBUTION WIDTH 12.6 % (11.5-14.5)
[2025-01-26 05:19] LABS: CREATININE 0.59 MG/DL (0.60-1.10); TOTAL CARBON DIOXIDE 30.1 MMOL/L (24-32); eCRCL 194 ML/MIN; eGFR > 90 ML/MIN
[2025-01-26 06:00] VITALS: BP 120/80; PULSE 81; RESP 14; TEMP 97.7; O2SAT 96
[2025-01-26] MEDS: potassium Cl 20 mEq SR tablet PO PRN (07:35)
[2025-01-26 08:03] VITALS: RESP 14; O2SAT 96
[2025-01-26] MEDS: PCA WASTE DOCUMENTATION 1 MG ML MC SCH (08:40)
[2025-01-26] MEDS: magnesium hydroxide 30ml (MOM) UD suspension PO ONE (09:48)
[2025-01-26 10:00] VITALS: BP 126/78; PULSE 80; RESP 18; TEMP 98.3; O2SAT 95
--- NOTE | 2025-01-26 17:03 | PROGRESS NOTE- Residence ---
Progress Note - Resident Providers to CC Resident Creating Document: YOON JETT RES ~ Antibiotic Timeout Antibiotic Ordered?: Yes Subjective Patient seen and examined at bedside. No acute overnight events noted. He has not had a bowel movement yet. He is able to passing flatus. Complaining of numbness in the lower abdomen. Requesting for Toradol. Objective Vital Signs Date Time Temp Pulse Resp B/P (MAP) Pulse Ox O2 Delivery O2 Flow Rate FiO2 01/26/25 10:00 98.3 80 18 126/78 (94) 95 01/26/25 08:03 Room Air 01/24/25 23:00 4.0 Result Diagram: 01/26/2543301/26/25433 General: Awake and Alert, mild acute distress. HEENT: Conjunctiva pink, Sclera clear, Mucus Membranes moist. Neck: Supple without masses and tenderness. Resp: Unlabored. Equal breath sounds bilaterally. Heart: Regular rhythm, normal S1 and S2, no rub, murmur or gallop. Abdomen: Soft, mild tenderness at surgical site. no organomegaly. Colostomy bag present, site clear, no surrounding erthema or edema. Normal bowel sounds. No guarding or rigidity. Extremities: Normal ROM, no swelling, nontender. No cyanosis,clubbing or edema. 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 Skin: Warm and Dry. Coagulation Studies Laboratory Tests Test 01/24/25 03:43 Prothrombin Time 10.6 SECONDS (9.0-12.0) INR International Normalized Ratio 1.0 INR Activated Partial Thromboplast Time 28 SECONDS (22-32) Coagulation Comments Plan Plan Acute abdominal pain Complicated sigmoid diverticulitis, peritonitis, perforation S/P robotic assisted laparoscopic sigmoid colectomy and colostomy on 01/24/2025 WBCs downtrending Continue Zosyn (start date 01/24/2025) Cultures NGTD Continue wound care and ostomy care He is having bowel sounds but has not passed a bowel movement yet, complaining of numbness around the lower abdomen. DC PRODUCTION INSPECTOR pump and started 2 mg Dilaudid q.4 p.r.n. and Percocet 2(10 mg) q.6 PRN, continue Toradol 30 q.6 p.r.n. Patient's vitals are currently stable. Patient on room air, saturating well. Diet has been advanced to clear liquids, diet per surgeon Hypokalemia Replacement per protocol Asymptomatic bacteriuria Code Status: Full code DVT Prophylaxis: Heparin Analgesia/Sedation: Toradol, Dilaudid Lines/Tubes: PIV Nutrition: Clear liquid diet, advance diet per surgeon's recommendations Prognosis: Guarded Disposition: Continue medical management. Awaiting bowel movement. Advance diet per surgeon's recommendations. Pain management with Toradol, Percocet and Dilaudid. Patient seen, examined and discussed with the attending physician Dr. Jerry. Yoon Jett MD. IM Resident PGY-3 Date of Service: Jan 26, 2025 Billing Provider: NATHANIEL JERRY MD Common Visit Codes: [id number] INP/OBS CARE(HIGH) YOON JETT RES Jan 26, 2025 17:03 NATHANIEL JERRY MD Jan 27, 2025 07:51
[2025-01-26 18:00] VITALS: BP 113/79; PULSE 82; RESP 18; TEMP 97.9; O2SAT 97
[2025-01-26] MEDS: nicotine 21mg patch - 24 hr TD SCH (19:14)
--- NOTE | 2025-01-26 19:34 | PROGRESS NOTE ---
Progress Note Dictate Providers to CC ~ Progress Note: Subsequent surgical care on a 39-year-old gentleman who is postoperative day 2, status post robotic assisted, laparoscopic sigmoid colectomy with creation of colostomy for complicated diverticulitis Minimal gas in the ostomy appliance Complains of abdominal distention Pathology pending Stoma congested but viable with some liquid and gas in the appliance Clears as tolerated, however, with nausea and vomiting he should Continue antibiotics Continue drain get a nasogastric tube Antibiotic Ordered?: Yes Objective Vitals Vital Signs Date Time Temp Pulse Resp B/P (MAP) Pulse Ox O2 Delivery O2 Flow Rate FiO2 01/26/25 19:14 14 01/26/25 10:00 98.3 80 126/78 (94) 95 01/26/25 08:03 Room Air 01/24/25 23:00 4.0 Lab Results: 01/26/25 0434 01/26/25 0434 Coagulation Studies Laboratory Tests Test 01/24/25 03:43 Prothrombin Time 10.6 SECONDS (9.0-12.0) INR International Normalized Ratio 1.0 INR Activated Partial Thromboplast Time 28 SECONDS (22-32) Coagulation Comments Problem\Assessment\Plan Problems/Diagnosis: (1) Diverticulitis of large intestine with complication (2) Perforated bowel NOEMY QURESHI MD Jan 26, 2025 19:34
[2025-01-26 20:00] VITALS: RESP 18; O2SAT 97
[2025-01-26 22:00] VITALS: BP 120/82; PULSE 80; RESP 18; TEMP 97.7; O2SAT 97
[2025-01-27] VITALS (7 sets, daily range): BP systolic 127–133; BP diastolic 80–85; PULSE 77–91; RESP 14–20; TEMP 97.6–98.3; O2SAT 96–99
[2025-01-27 08:14] LABS: MEAN PLATELET VOLUME 7.8 FL (7.4-10.4); RED CELL DISTRIBUTION WIDTH 12.8 % (11.5-14.5)
[2025-01-27 08:32] LABS: CREATININE 0.68 MG/DL (0.60-1.10); TOTAL CARBON DIOXIDE 31.1 MMOL/L (24-32); eCRCL 168 ML/MIN; eGFR > 90 ML/MIN
[2025-01-27] MEDS ORDERED: potassium Cl 40MEQ/1/2NS 520ml 520 ML IV PRN (09:20)
[2025-01-27] MEDS ORDERED: potassium Cl 20 mEq SR tablet PO PRN (09:20)
[2025-01-27] MEDS ORDERED: magnesium sulf-water 4G/100mL 100 ML IV PRN (09:20)
[2025-01-27] MEDS ORDERED: magnesium sulf-water 2g/50mL 50 ML IV PRN (09:20)
[2025-01-27] MEDS ORDERED: magnesium Cl slow-release 64mg tablet PO PRN (09:20)
[2025-01-27] MEDS: potassium Cl 20 mEq SR tablet PO PRN (09:24)
--- NOTE | 2025-01-27 10:59 | PROGRESS NOTE- Residence ---
Progress Note - Resident Providers to CC Resident Creating Document: BAKARI COSME RES ~ Antibiotic Timeout Antibiotic Ordered?: Yes Subjective Patient seen and examined at bedside. Reports numbness around periumblical area, also complaining of abdominal pain about 6/10, denies nausea, vomitting, passing flatus but has not passed stools. Objective Vital Signs Date Time Temp Pulse Resp B/P (MAP) Pulse Ox O2 Delivery O2 Flow Rate FiO2 01/27/25 07:19 14 99 Room Air 01/27/25 07:06 98.2 79 127/82 (97) 01/24/25 23:00 4.0 Result Diagram: 01/27/25 0701/27/25 07 General: Awake and Alert, mild acute distress. HEENT: Conjunctiva pink, Sclera clear, Mucus Membranes moist. Neck: Supple without masses and tenderness. Resp: Unlabored. Equal breath sounds bilaterally. Heart: Regular rhythm, normal S1 and S2, no rub, murmur or gallop. Abdomen: Soft, mild tenderness at surgical site. no organomegaly. Colostomy bag present, site clear, no surrounding erthema or edema. Normal bowel sounds. No guarding or rigidity. Extremities: Normal ROM, no swelling, nontender. No cyanosis,clubbing or edema. CATALOGUE COMPILER: No gross motor or sensory abnormalities. Skin: Warm and Dry. Coagulation Studies Laboratory Tests Test 01/24/25 03:43 Prothrombin Time 10.6 SECONDS (9.0-12.0) INR International Normalized Ratio 1.0 INR Activated Partial Thromboplast Time 28 SECONDS (22-32) Coagulation Comments Advance Care Planning Advanced Care plannin - 30 Minutes Plan Plan Acute abdominal pain Complicated sigmoid diverticulitis, peritonitis, perforation S/P robotic assisted laparoscopic sigmoid colectomy and colostomy on 01/24/2025 Leukocytosis resolved Continue Zosyn (start date 01/24/2025) Cultures NGTD Continue wound care and ostomy care He is having bowel sounds but has not passed a bowel movement yet, complaining of numbness around the lower abdomen. DC CREPE SOLE WIRE BRUSHER pump and started 2 mg Dilaudid q.4 p.r.n. and Percocet 2(10 mg) q.6 PRN, continue Toradol 30 q.6 p.r.n. On full liquid diet as per surgeon. Hypokalemia K 3.3 Replacement per protocol Asymptomatic bacteriuria Urine culture negative Code Status: Full code DVT Prophylaxis: Heparin Analgesia/Sedation: Toradol, Dilaudid Nutrition: FULL LIQUID DIET, advance diet per surgeon's recommendations Prognosis: Guarded Disposition: Continue medical management. Awaiting bowel movement. Advance diet per surgeon's recommendations. Pain management with Toradol, Percocet and Dilaudid. Patient seen, examined and discussed with the attending physician Dr. Jerry. Bakari Cosme PGY 1 IM Date of Service: Jan 27, 2025 Billing Provider: NATHANIEL JERRY MD Common Visit Codes: [id number] INP/OBS CARE(HIGH) BAKARI COSME, CHRISTIAN Jan 27, 2025 10:59 NATHANIEL JERRY MD Jan 28, 2025 08:43
--- NOTE | 2025-01-27 12:09 | PROGRESS NOTE ---
Progress Note Dictate Providers to CC ~ Progress Note: Subsequent surgical care on a 39-year-old gentleman who is postoperative day 3, status post robotic assisted, laparoscopic sigmoid colectomy with creation of colostomy for complicated diverticulitis Increased gas in the ostomy appliance Abdominal distention improved Pathology pending Stoma congested but viable with some liquid and gas in the appliance Continue antibiotics Milk of magnesia Continue clears until stool in the appliance Antibiotic Ordered?: Yes Objective Vitals Vital Signs Date Time Temp Pulse Resp B/P (MAP) Pulse Ox O2 Delivery O2 Flow Rate FiO2 01/27/25 07:19 14 99 Room Air 01/27/25 07:06 98.2 79 127/82 (97) 01/24/25 23:00 4.0 Lab Results: 01/27/25 0706 01/27/25 0706 Coagulation Studies Laboratory Tests Test 01/24/25 03:43 Prothrombin Time 10.6 SECONDS (9.0-12.0) INR International Normalized Ratio 1.0 INR Activated Partial Thromboplast Time 28 SECONDS (22-32) Coagulation Comments Problem\Assessment\Plan Problems/Diagnosis: (1) Diverticulitis of large intestine with complication (2) Perforated bowel NOEMY QURESHI MD Jan 27, 2025 12:09
[2025-01-27] MEDS: magnesium hydroxide 30ml (MOM) UD suspension PO ONE (13:11)
--- NOTE | 2025-01-27 13:28 | RADIOLOGY REPORT ---
Exam: DI ABDOMEN,SINGLE VIEW(KUB) Indication: Postoperative Comparison: CT CT ABDOMEN PELVIS W/ IV CONTRAST on DOS: 01/24/25 Technique: 1 radiographic views of the abdomen. Findings: Abnormal nonspecific bowel-gas pattern with multiple prominent air-filled loops of small bowel measuring up to 2.8 cm. There is no definite evidence for pneumoperitoneum. No abnormal calcifications noted. Impression: Abnormal nonspecific bowel-gas pattern with multiple prominent air-filled loops of small bowel measuring up to 2.8 cm. Findings may represent ileus versus partial obstruction.
[2025-01-28 06:29] LABS: MEAN PLATELET VOLUME 7.1 FL (7.4-10.4); RED CELL DISTRIBUTION WIDTH 12.7 % (11.5-14.5)
[2025-01-28 06:43] LABS: CREATININE 0.72 MG/DL (0.60-1.10); TOTAL CARBON DIOXIDE 29.3 MMOL/L (24-32); eCRCL 159 ML/MIN; eGFR > 90 ML/MIN
[2025-01-28 06:57] VITALS: BP 135/86; PULSE 79; RESP 18; TEMP 98.4; O2SAT 98
[2025-01-28 08:00] VITALS: RESP 16; O2SAT 96
[2025-01-28 10:00] VITALS: BP 136/84; PULSE 80; RESP 19; TEMP 98.2; O2SAT 95
--- NOTE | 2025-01-28 14:59 | PROGRESS NOTE ---
Progress Note Dictate Providers to CC CC: REAL QURESHI ~ Progress Note: Subsequent surgical care on a 39-year-old gentleman who is postoperative day 4, status post robotic assisted, laparoscopic sigmoid colectomy with creation of colostomy for complicated diverticulitis Lots of liquid stool output. Abdominal distention improved Pathology pending Stoma edema decreasing Continue IV antibiotics 24 hours Regular diet Home tomorrow if home health set up and ostomy assistance in place Antibiotic Ordered?: Yes Objective Vitals Vital Signs Date Time Temp Pulse Resp B/P (MAP) Pulse Ox O2 Delivery O2 Flow Rate FiO2 01/28/25 13:39 16 01/28/25 08:00 96 Room Air 01/28/25 06:57 98.4 79 135/86 (102) 01/27/25 22:00 0.0 Lab Results: 01/28/25 0605 01/28/25 0824 Coagulation Studies Laboratory Tests Test 01/24/25 03:43 Prothrombin Time 10.6 SECONDS (9.0-12.0) INR International Normalized Ratio 1.0 INR Activated Partial Thromboplast Time 28 SECONDS (22-32) Coagulation Comments Problem\Assessment\Plan Problems/Diagnosis: (1) Diverticulitis of large intestine with complication (2) Perforated bowel NOEMY QURESHI MD Jan 28, 2025 14:59
[2025-01-28 18:00] VITALS: BP 134/81; PULSE 86; RESP 14; TEMP 98.2; O2SAT 98
--- NOTE | 2025-01-28 18:09 | PROGRESS NOTE- Residence ---
Progress Note - Resident Providers to CC Resident Creating Document: ARTURO COSME RES ~ Antibiotic Timeout Antibiotic Ordered?: Yes Subjective Patient seen and examined at bedside. reports pain in abdomen only while walking, had bowel movments, reports 3 episode of vomitting, He also said he is tolerating solid foods little bit. Objective Vital Signs Date Time Temp Pulse Resp B/P (MAP) Pulse Ox O2 Delivery O2 Flow Rate FiO2 01/28/25 14:39 16 01/28/25 10:00 98.2 80 136/84 (101) 95 Room Air 0.0 Result Diagram: 01/28/25 0605 01/28/25 0824 General: Awake and Alert, mild acute distress. HEENT: Conjunctiva pink, Sclera clear, Mucus Membranes moist. Neck: Supple without masses and tenderness. Resp: Unlabored. Equal breath sounds bilaterally. Heart: Regular rhythm, normal S1 and S2, no rub, murmur or gallop. Abdomen: Soft, mild tenderness at surgical site. no organomegaly. Colostomy bag present, site clear, no surrounding erthema or edema. Normal bowel sounds. No guarding or rigidity. incision dry and clean. Extremities: Normal ROM, no swelling, nontender. No cyanosis,clubbing or edema. TRAVEL ACCOMMODATION INSPECTOR: No gross motor or sensory abnormalities. Skin: Warm and Dry. Coagulation Studies Laboratory Tests Test 01/24/25 03:43 Prothrombin Time 10.6 SECONDS (9.0-12.0) INR International Normalized Ratio 1.0 INR Activated Partial Thromboplast Time 28 SECONDS (22-32) Coagulation Comments Advance Care Planning Advanced Care plannin - 30 Minutes Plan Plan Acute abdominal pain Complicated sigmoid diverticulitis, peritonitis, perforation S/P robotic assisted laparoscopic sigmoid colectomy and colostomy on 01/24/2025 Leukocytosis resolved Continue Zosyn (start date 01/24/2025) Cultures NGTD Continue wound care and ostomy care He is having bowel sounds but has not passed a bowel movement yet, complaining of numbness around the lower abdomen. DC MATERIAL REQUIREMENTS PLANNING MANAGER pump and started 2 mg Dilaudid q.4 p.r.n. and Percocet 2(10 mg) q.6 PRN, continue Toradol 30 q.6 p.r.n. On regular diet as per surgeon Hypokalemia Resolved Asymptomatic bacteriuria Urine culture negative Code Status: Full code DVT Prophylaxis: Heparin Analgesia/Sedation: Toradol, Dilaudid Nutrition: As per [email or web address] Prognosis: Guarded Disposition: Continue medical management, awaiting bowel movement, Pain management with Toradol, Percocet and Dilaudid. Possibly discharge tomorrow. Patient seen, examined and discussed with the attending physician Dr. Jerry. Arturo Cosme PGY 1 IM Date of Service: Jan 28, 2025 Billing Provider: NATHANIEL JERRY MD Common Visit Codes: [id number] INP/OBS CARE(HIGH) ARTURO COSME, CHRISTIAN Jan 28, 2025 18:09 NATHANIEL JERRY MD Jan 29, 2025 07:08
[2025-01-28 20:00] VITALS: RESP 18; O2SAT 98
[2025-01-28 22:00] VITALS: BP 124/78; PULSE 93; RESP 14; TEMP 98.1; O2SAT 97
[2025-01-29 05:36] LABS: MEAN PLATELET VOLUME 7.5 FL (7.4-10.4); RED CELL DISTRIBUTION WIDTH 12.9 % (11.5-14.5)
[2025-01-29 05:55] LABS: CREATININE 0.64 MG/DL (0.60-1.10); TOTAL CARBON DIOXIDE 27.3 MMOL/L (24-32); eCRCL 178 ML/MIN; eGFR > 90 ML/MIN
[2025-01-29 06:30] VITALS: BP 123/77; PULSE 76; RESP 14; TEMP 97.6; O2SAT 98
[2025-01-29 10:00] VITALS: BP 120/50; PULSE 91; RESP 16; TEMP 98.2; O2SAT 100
[2025-01-29] MEDS ORDERED: OXYC1TAB17 PO (13:14)
[2025-01-29] MEDS ORDERED: CIPR-259 PO (15:30)
[2025-01-29] MEDS ORDERED: LACT1CAP26 PO (15:30)
[2025-01-29] MEDS ORDERED: NICO-687 TD (15:30)
[2025-01-29] MEDS ORDERED: METR-159 PO (15:30)
[2025-01-29 15:59] VITALS: RESP 16
--- NOTE | 2025-01-29 16:48 | DISCHARGE SUMMARY-Residence ---
Discharge Summary Providers to CC Resident Creating Document: BARTOLONATALIASHERRI LANCASTER, RES CC: NATHANIEL JERRY MD ~ Discharge Summary Admission Diagnosis: Complicated sigmoid diverticulitis Hospital Course DATE OF ADMISSION: 01/24/25 DATE OF DISCHARGE: 01/29/25 Discharge Diagnosis\Comment: Complicated sigmoid diverticulitis with peritonitis and perforation Hypokalemia Asymptomatic bacteriuria Operations\Procedures: Sigmoid colectomy and colostomy on 01/24/2025 Consultants: Dr. Robledo Complications: None Condition on DC: Stable New Medications: Ciprofloxacin HCl (Cipro) 500 Mg Tablet 1 TAB PO Q12H for 5 Days, #10 TAB Lactobacillus Rhamnosus (Culturelle) 10 Billion Cell Capsule 1 EACH PO BID for 30 Days, #60 CAP Metronidazole* (Flagyl*) 500 Mg Tablet 1 TAB PO TID for 5 Days, #15 TAB Nicotine 21 MG Patch* (Habitrol 21 MG Patch*) 1 Each Patch.td24 1 PATCH TD DAILY for 10 Days, #10 PATCH Oxycodone Hcl/Acetaminophen (Oxycodone-Acetaminophen 10-325) 10 Mg-325 Mg Tablet 2 TAB PO Q6H PRN for moderate or severe pain 4-10, #30 TAB Discharge Summary: A 39-year-old male with no PMH presented to the ED in view worsening abdominal pain that has been came the worst when he felt something popped. In the ED he was found to have sigmoid diverticulitis on imaging. He also had some locules of air outside the colon in the upper abdomen. Patient was initially admitted and started on IV antibiotics. Throughout the day patient's pain did not improve and only had worsened. The pain was intractable, Dr. Robledo was immediately consulted for perforated viscus. Patient underwent sigmoid colectomy and colostomy on 01/24/2025. At the time of admission patient had low potassium requiring to be placed on potassium replacement protocol. Patient also had positive urinalysis but was asymptomatic for any symptoms. Patient was initially started on IV Zosyn that the patient completed for five days while in the hospital. After consultation with Dr. Robledo patient is being discharged versus recommendations. Patient is hemodynamically stable for discharge Physical examination at discharge: General: Alert, awake, oriented, not in acute distress HEENT: PERRLA, no icterus, pallor, lymphadenopathy, carotid bruit Respiratory system: Bilateral vesicular breath sounds heard, no adventitious breath sounds CVS: S1-S2 heard, no murmurs/rubs/gallop GI: Surgical incision with clean and intact dressing present no signs of erythema wound dehiscence. [place] still present. Patient has a colostomy bag. Neuro: No focal neurological deficits present Mental status exam: alert and consciousness, orientation, memory, speech - Cranial nerve test: Cranial nerves 2-12 intact - Motor system: Nutrition, Tone 3+, Power 5/5, no involuntary movements - Sensory system: Intact - Reflex testing: Biceps, triceps and knee reflexes 2+ - Cerebellar: Normal Extremities: No edema cyanosis clubbing/deformities Skin: Warm and dry Labs at discharge: WBC: 12.1, H/H: 12.7/36.3, platelet count: 358 Sodium: 137, potassium: 3.5, BUN: Five, creatinine: 0.64 Imaging: Abdomen x-ray: Abnormal nonspecific bowel-gas pattern with multiple prominent air-filled loops of small bowel measuring up to 2.8 cm. Findings may represent ileus versus partial obstruction. Chest x-ray: No acute cardiopulmonary disease. Abdomen/pelvis CT: Abnormal appearance of distal ileal loop with wall thickening, marked perienteric fat stranding, adjacent free fluid, inseparable from sigmoid colon which exhibits mild wall thickening and diverticulosis. There are findings of adjacent micro perforation as well as moderate free intraperitoneal air. Findings may be on the basis of sigmoid colonic diverticulitis with perforation versus ileal enteritis with perforation. Discharge medications can be found above and patient is discharged with the following recommendations: Activity as tolerated. No lifting greater than 20 pounds for 4 weeks. Follow-up with Dr. Robledo's medical laboratory specialist on February 05 for staple removal. Call [phone] We gave you antibiotics for five days and probiotic for 30 days. Please maintain compliance We are giving you supplies for ostomy management. Please follow instructions per your training. Return to ER in case of abdominal pain, fever, altered mental status. May shower when changing ostomy. Diet as tolerated. *Problems/Diagnosis: (1) Diverticulitis of large intestine with complication (2) Perforated bowel Status: Acute Total Time Spent on D/C: > 30 Minutes Date of Service: Jan 29, 2025 Billing Provider: NATHANIEL JERRY MD Common Visit Codes: [id number] DISCH DAY >30min SHERRI CHAU, RES Jan 29, 2025 16:48 NATHANIEL JERRY MD Jan 30, 2025 05:59
--- NOTE | 2025-01-29 18:11 | PATHOLOGY REPORT ---
[facility] [address] [place] [address] SURGICAL PATHOLOGY REPORT CaseNumber: [id number] Surgeon:DEANNA Morton CLINICAL INFORMATION CLINICAL INFORMATION: Not provided. DIAGNOSIS DIAGNOSIS: COLON, SIGMOID; RESECTION - DIVERTICULITIS, SUBACUTE. - DIVERTICULOSIS. - NEGATIVE FOR NEOPLASIA. MICROSCOPIC DESCRIPTION MICROSCOPIC DESCRIPTION: Two slides are examined. Present is colonic tissue. Diverticulosis is confirmed. One diverticulum is associated with intense bill- diverticular mixed inflammation. The inflammatory cells include neutrophils and mononuclear cells. An overt perforated site is not identified in planes of section examined but the character of the bill-diverticular inflammatory infiltrate suggests at least remote perforation. In any case, there is no evidence of malignancy. (st) GROSS DESCRIPTION GROSS DESCRIPTION: Received in a container of formalin labeled with the patient's name, number, and "sigmoid colon" is a 7 cm length of bowel which which measures 3 cm in diameter. The serosa is roughened and congested with areas of indurated fibrinopurulent exudate. Both ends of the bowel are closed by a row of surgical kevin. The bowel is opened lengthwise to reveal a small amount of partially formed stool. Sectioning reveals scattered diverticula and a possible area of perforation. The mucosa is red and granular. Sections are submitted as follows: A1) Possible area of perforationA2) Diverticula The time at which the specimen was removed was 2036. The time at which the specimen was placed in formalin was 2129. (meb) Electronically signed by: David Campos M.D. 01/29/2025 5:30:00 PM
== END 2025-01-29 17:10 | disposition home or self-care (01) | DRG 329 ==
LOC: ER 23:03 → ED HOLD 01-24 03:24 → EDBEDREQ 01-24 05:32 → CICU 2S 01-24 07:33 → PCU 3S 01-24 16:20 → SUR 3N 01-25 12:15
PROVIDERS: ADMIT Internal Medicine Sleep Medicine; ATTEND Internal Medicine
PROC: BW211ZZ Computerized Tomography (CT Scan) of Abdomen and Pelvis using Low Osmolar Contrast (ICD-10-PCS; 2025-01-24)
PROC: 0D1N4Z4 Bypass Sigmoid Colon to Cutaneous, Percutaneous Endoscopic Approach (ICD-10-PCS; principal; 2025-01-29)
PROC: 8E0W4CZ Robotic Assisted Procedure of Trunk Region, Percutaneous Endoscopic Approach (ICD-10-PCS; 2025-01-29)
DX: K57.20 Diverticulitis of large intestine with perforation and abscess without bleeding (principal); K65.0 Generalized (acute) peritonitis; K65.1 Peritoneal abscess; E78.1 Pure hyperglyceridemia; E87.6 Hypokalemia; R82.71 Bacteriuria; F17.210 Nicotine dependence, cigarettes, uncomplicated; K66.0 Peritoneal adhesions (postprocedural) (postinfection)
CPT/HCPCS: 99285; Z7506; Z7508; 36415; 71045; 74018; 74177; 80053; 80061; 80305; 81001; 82948; 83036; 83605; 83690; 83735; 83880; 84132; 84145; 84484; 85025; 85610; 85730; 86885; 86900; 86901; 87040; 87081; 87088; A4215; A4421; A4615; A4618; A5200; A6212; A6258; C1758; G0378; J0131; J1100; J1171; J1885; J2003; J2250; J2270; J2274; J2405; J2543; J2704; J3010; J3480; J3490; J7030; J7040; J7042; J7120; Q9967

== ENCOUNTER 2025-02-02 10:54 | Emergency (ER) | payer SELFPAY ==
[~2025-02-02] VITALS: Ht 188 cm; Wt 98.3 kg
[~2025-02-02 10:54] MED LIST changes: +CIPR-259 PO; -DIPH25CA83 PO; -HYDR28CR14 TOP; +LACT1CAP26 PO; +METR-159 PO; +NICO-687 TD; +NO HOME MEDS; -ONDA-243 PO; -ONDA4TAB6 PO; +OXYC1TAB17 PO
[2025-02-02 11:11] VITALS: BP 129/72; PULSE 91; RESP 16; TEMP 98.1; O2SAT 97
--- NOTE | 2025-02-02 11:29 | Physician Documentation ---
History of Present Illness ~ General Chief Complaint: Post-operative complication Stated Complaint: POST OP COMPLICATIONS Time Seen by MD: 10:57 Primary Medical Doctor: none Source: patient Mode of Arrival: POV Exam Limitations: no limitations History of Present Illness Initial Comments 39 y/o male who is 9days post op colostomy bag placement for perforated diverticulitis. Patient reports he was discharged with two colostomy bags and he does not have a prescription for colostomy bags. He has follow up with Dr. Robledo on Wednesday this next week to have his kevin removed. Medication Reconciliation Allergies: Coded Allergies: No Known Allergies (Unverified , 02/02/25) Scheduled Ciprofloxacin HCl (Cipro), 1 TAB PO Q12H Lactobacillus Rhamnosus (Culturelle), 1 EACH PO BID Metronidazole* (Flagyl*), 1 TAB PO TID Nicotine 21 MG Patch* (Habitrol 21 MG Patch*), 1 PATCH TD DAILY Scheduled PRN Oxycodone Hcl/Acetaminophen (Oxycodone-Acetaminophen 10-325), 2 TAB PO Q6H PRN for moderate or severe pain 4-10 Miscellaneous Medications Home Med List (No Home Medications), (Reported) Past Medical History Past Medical History: No Pertinent History Past Surgical History: no surgical history Patient History: Patient reports no known family medical history. Alcohol Use: Occasionally Drug Use: marijuana Lives In: Home Occupation: employed Review of Systems All Other Systems at this time: Reviewed and Negative Physical Exam Physical Exam Vital Signs: Temperature: 98.1, Source: Oral, Heart Rate: 91, Respiratory Rate: 16, BP: 129/72, Pulse Oximetry: 97, Weight: 98.300 Oxygen Flow Rate: 0 Physical Exam GENERAL: Alert, no acute distress. HEENT: NCAT, EOMI, PERRL, moist oral mucosa. NECK: Supple, trachea midline. CARDIAC: Regular rate and rhythm, no murmurs, rubs, or gallops. Equal distal pulses. No lower extremity edema, cap refill less than 2 seconds. RESPIRATORY: Equal breath sounds, clear to auscultation bilaterally, no respiratory distress. GASTROINTESTINAL: Non distended, soft, NTTP, colostomy bag present, stoma is bright red, no leakage around the colostomy bag. NEUROLOGICAL: Awake, alert, and oriented x 3. SKIN: Warm/dry, no pallor, no rash. PSYCH: Alert and appropriate. Affect congruent with mood. Speech is clear. Good eye contact. Progress Progress Note COLOSTOMY BAG REPLACED BY RN Results/Orders Results/Orders Vital Signs 02/02/25 02/02/25 02/02/25 11:01 11:07 11:11 Temp 98.3 98.1 Pulse 89 91 Resp 18 14 16 B/P (MAP) 119/75 129/72 (91) Pulse Ox 97 97 O2 Flow Rate 0 0 Medical Decision Making Additional information obtaine: old records Findings recent hospitalization and operative notes reviewed Differential Diagnosis no evidence for infection, no wounds/cellulitis of skin around stoma site. colostomy bag contains liquid stool. Departure Time of Disposition: 11:28 Disposition: 01 HOME / SELF CARE / HOMELESS Impression: Primary Impression: Colostomy care Condition: Stable Discharge Instructions: Colostomy Home Guide, Adult Additional Instructions: Reassurance given that the stoma looks good. Patient does not have enough colostomy bags, I have never ordered colostomy bags from the ER. I encouraged patient to reach out to Dr. Robledo's office to have them place an order. Referrals: NO PRIMARY CARE PROVIDER (PCP) Education Educated: Patient Educated regarding: diagnosis, treatment, need for follow up Signature Scribe Signature: x Attestation: ZAIDA Schroeder Feb 02, 2025 11:29
== END 2025-02-02 12:08 | disposition home or self-care (01) ==
LOC: ER 10:54
DX: Z43.3 Encounter for attention to colostomy (principal); F12.90 Cannabis use, unspecified, uncomplicated
CPT/HCPCS: 99282; A4421